=== PATIENT | male | born 2005 | race Caucasian/White ===

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

== ENCOUNTER → 2025-05-21 | Outpatient (CLI) | payer BC, SELFPAY ==
--- OUTSIDE RECORDS SUMMARY | 2025-05-21 20:47 | XMS RPT_ITS | CCD ---
Author Organization [facility] Inform ion Partnership [facility] Care Team Providers Care Conductor [employer] Name Role Phone MEKHI RODRIGUEZ Primary Care Mekhi Prather Attending Reynaldo Beyer Primary Care Unavailable PHYSICIAN, NOT RECORDED Primary Care Physician MEGHNA Albarado DO Attending Unavailable PHYSICIAN, NOT RECORDED Primary Care Unavaila ble Medications Current Medications Medication Drug Class(es) Dates Sig (Normalized) Sig (Original) famotidine 8 mg/ml oral suspension (2 sources) Histamine-2 Receptor Antagonist Start: 05-12-2025 take 1 dose by mouth twice daily famotidine 40 mg/5 mL oral suspension Dose : 40 mg = 5 mL, Oral, BID, # 300 mL, 0 Refill(s) Start Date: 05/12/25 Status: Ordered Medication Dispense Status: Completed Quantity: 300.0 Unit: mL Total Allowed Fills: 1 Fills Dispensed: 0 Start: 05-12-2025 Pepcid 20 mg o ral tablet Dose : 20 mg = 1 tab(s), Oral, BID, # 30 tab(s), 0 Refill(s) Start Date: 05/12/25 Status: Ordered Medication Dispense Status: Completed Quantity: 30.0 Unit: tab(s) Total Allowed Fills: 1 Fills Dispensed: 0 omeprazole 20 mg delayed release oral capsule (1 source) Proton Pump Inhibitor Start: 05-12-2025 omeprazole 20 mg oral delayed release capsule Dose : 20 mg = 1 cap(s), Oral, qDay, # 30 cap(s), 0 Refill(s) Start Date: 05/12/25 Status: Ordered Medication Dispense Status: Completed Quantity: 30.0 Unit: cap(s) Total Allowed Fills: 1 Fills Dispensed: 0 omeprazole 2 mg/mL oral suspension (1 source) Start: 05-12-2025 take 1 dose by mouth once daily omeprazole 2 mg/mL oral suspension Dose : 20 mg = 10 mL, Oral, qDay, # 200 mL, 0 Refill(s) Start Date: 05/12/25 Status: Ordered Medication Dispense Status: Completed Quantity: 200.0 Unit: mL Total Allowed Fills: 1 Fills Dispensed: 0 ondansetron 4 mg disintegrating oral tablet (1 source) Serotonin-3 Receptor Antagonist Start: 05-12-2025 End: 05-16-2025 ondansetron 4 mg oral tablet, disintegrating Dose : 4 mg = 1 tab(s), Oral, q6h, PRN Nausea/Vomiting, X 4 day(s), # 12 tab(s), 0 Refill(s), 05/16/25 11:45:00 PM EDT Start Date: 05/12/25 Stop Date: 05/16/25 Status: Ordered Medication Dispense Status: Completed Quantity: 12.0 Unit: tab(s) Total Allowed Fills: 1 Fills Dispensed: 0 Problems Problem Classification Problem Date Documented Da te Episodic/Chronic Abdominal pain (2 sources) Abdominal pain; Translations: [Unspecified abdominal pain] Onset: 05-12-2025 Episodic Acute and chronic tonsillitis (1 source) Chronic tonsillitis; Translations: [Chronic tonsillitis] Onset: 06-28-2023 Chronic Nausea and vomiting (2 sources) Nausea; Translations: [Nausea] Onset: 05-12-2025 Episodic Results Test Name Value Interpretation Reference Range Facility .Auto Diffon 05-12-2025 Basophil, Absolute 0.0 10 3/mcL Normal 0.0-0.3 [facility] Comment on above: Performed By: #### M DW, CBC, GFR, MG, LIP, ANEU, ADIFF, CMP #### [address] [place], [place] [address] Basophils/100 WBC (Bld) 0.4 % Normal 0.0-2.5 [facility] Comment on above: Performed By: #### M DW, CBC, GFR, MG, LIP, ANEU, ADIFF, CMP #### [address] [place], [place] [address] Eosinophil, Absolute 0.1 10 3/mcL Normal 0.0-0.7 [facility] Comment on above: Performed By: #### M DW, CBC, GFR, MG, LIP, ANEU, ADIFF, CMP #### [address] [address] Eosinophils/100 WBC (Bld) 1.1 % Normal 0.0-6.0 [facility] Comment on above: Performed By: #### M DW, CBC, GFR, MG, LIP, ANEU, ADIFF, CMP #### [address] [address] Lymphocyte, Absolute 2.6 10 3/mcL Normal 0.9-4.3 [facility] Comment on above: Performed By: #### M DW, CBC, GFR, MG, LIP, ANEU, ADIFF, CMP #### [address] [address] Lymphocytes/100 WBC (Bld) 21.7 % Normal 20.0-40.0 [facility] Comment on above: Performed By: #### M DW, CBC, GFR, MG, LIP, ANEU, ADIFF, CMP #### [address] [address] Monocyte, Absolute 0.9 10 3/mcL Normal 0.1-1.4 [facility] Comment on above: Performed By: #### M DW, CBC, GFR, MG, LIP, ANEU, ADIFF, CMP #### [address] [address] Monocytes/100 WBC (Bld) 7.7 % Normal 2.0-13.0 [facility] Comment on above: Performed By: #### M DW, CBC, GFR, MG, LIP, ANEU, ADIFF, CMP #### [address] [address] Neutrophils/100 WBC (Bld) 69.1 % Normal 50.0-75.0 [facility] Comment on above: Performed By: #### M DW, CBC, GFR, MG, LIP, ANEU, ADIFF, CMP #### [address] [address] .GFRon 2025 Estimated Glomerular Filtration Rate 95 ml/min/1.73sqm Normal [facility] Comment on above: Result Comment: Stages of Chronic Kidney Disease (CKD) Stage Description eGFR(ml/min/1.73 sq.m.) CKD 1 Normal kidney function or >=90 normal kindney function with possible kidney damage (ex. Proteinuria) CKD 2 Kidney damage with mild loss 60-89 of kidney function CKD 3a Mild to moderate loss of kidney 45-59 function CKD 3b Moderate to severe loss of 30-44 of kindey function CKD 4 Severe loss of kidney function 15-29 CKD 5 Kidney failure <15 Note: (go live 2024) the eGFR calculation was updated to the 2020 CKD-EPI creatinine equation without a race factor to calculate the eGFR results. Performed By: #### M DW, CBC, GFR, MG, LIP, ANEU, ADIFF, CMP #### [address] [address] .MDWon 05-12-2025 Monocyte Distribution Width 18.10 Normal 0.00-20.00 [facility] Comment on above: Result Comment: For ED adult patients suspected of sepsis, MDW<=20.0 does not rule out sepsis or risk of sepsis Performed By: #### M DW, CBC, GFR, MG, LIP, ANEU, ADIFF, CMP #### [address] [address] .NEUABSon 05-12-2025 Neutrophil, Absolute 8.4 10 3/mcL High 2.3-8.1 [facility] Comment on above: Performed By: #### M DW, CBC, GFR, MG, LIP, ANEU, ADIFF, CMP #### [address] [address] CBCon 05-12-2025 Erythrocyte distribution width (RBC) [Ratio] 13.1 % Normal 11.5-15.5 [facility] Comment on above: Performed By: #### M DW, CBC, GFR, MG, LIP, ANEU, ADIFF, CMP #### [address] [address] Hematocrit (Bld) [Volume fraction] 46.3 % Normal 40.0-52.0 [facility] Comment on above: Performed By: #### M DW, CBC, GFR, MG, LIP, ANEU, ADIFF, CMP #### [address] [address] Hgb 16.1 G/dL Normal 13.0-17.5 [facility] Comment on above: Performed By: #### M DW, CBC, GFR, MG, LIP, ANEU, ADIFF, CMP #### [address] [address] MCH (RBC) [Entitic mass] 30.1 pg Normal 27.0-33.0 [facility] Comment on above: Performed By: #### M DW, CBC, GFR, MG, LIP, ANEU, ADIFF, CMP #### [address] [address] MCHC 34.7 G/dL Normal 32.0-36.0 [facility] Comment on above: Performed By: #### M DW, CBC, GFR, MG, LIP, ANEU, ADIFF, CMP #### [address] [address] MCV (RBC) [Entitic vol] 86.9 fL Normal 81.0-100.0 [facility] Comment on above: Performed By: #### M DW, CBC, GFR, MG, LIP, ANEU, ADIFF, CMP #### [address] [address] Platelet 295 10 3/mcL Normal 150-450 [facility] Comment on above: Performed By: #### M DW, CBC, GFR, MG, LIP, ANEU, ADIFF, CMP #### [address] [address] Platelet mean volume (Bld) [Entitic vol] 8.8 fL Normal 6.4-10.5 [facility] Comment on above: Performed By: #### M DW, CBC, GFR, MG, LIP, ANEU, ADIFF, CMP #### [address] [address] RBC 5.33 10 6/mcL Normal 4.50-6.00 [facility] Comment on above: Performed By: #### M DW, CBC, GFR, MG, LIP, ANEU, ADIFF, CMP #### [address] [address] WBC 12.1 10 3/mcL High 4.5-10.8 [facility] Comment on above: Performed By: #### M DW, CBC, GFR, MG, LIP, ANEU, ADIFF, CMP #### [address] [address] CMPon 05-12-2025 ALT [Catalytic activity/Vol] 30 U/L Normal 16-63 [facility] Comment on above: Performed By: #### M DW, CBC, GFR, MG, LIP, ANEU, ADIFF, CMP #### [address] [address] Albumin Level 4.5 G/dL Normal 3.5-5.0 [facility] Comment on above: Performed By: #### M DW, CBC, GFR, MG, LIP, ANEU, ADIFF, CMP #### [address] [address] Albumin/Globulin [Mass ratio] 1.2 {ratio} Normal 1.1-2.5 [facility] Comment on above: Performed By: #### M DW, CBC, GFR, MG, LIP, ANEU, ADIFF, CMP #### [address] [address] ALP [Catalytic activity/Vol] 85 U/L Normal 40-135 [facility] Comment on above: Performed By: #### M DW, CBC, GFR, MG, LIP, ANEU, ADIFF, CMP #### [address] [address] AST [Catalytic activity/Vol] 41 U/L High 10-40 [facility] Comment on above: Performed By: #### M DW, CBC, GFR, MG, LIP, ANEU, ADIFF, CMP #### [address] [address] Bili Total 0.4 mg/dL Normal 0.2-1.0 [facility] Comment on above: Result Comment: Use of this assay is not recommended for patients undergoing treatment with eltrombopag due to the potential for falsely elevated results. Performed By: #### M DW, CBC, GFR, MG, LIP, ANEU, ADIFF, CMP #### [address] [address] BUN/Creatinine Ratio 12 ratio Normal 7-27 [facility] Comment on above: Performed By: #### M DW, CBC, GFR, MG, LIP, ANEU, ADIFF, CMP #### [address] [address] Calcium [Mass/Vol] 9.5 mg/dL Normal 8.4-10.2 [facility] Comment on above: Performed By: #### M DW, CBC, GFR, MG, LIP, ANEU, ADIFF, CMP #### [address] [address] Chloride [Moles/Vol] 102 mmol/L Normal 98-107 [facility] Comment on above: Performed By: #### M DW, CBC, GFR, MG, LIP, ANEU, ADIFF, CMP #### [address] [address] CO2 [Moles/Vol] 27 mmol/L Normal 22-29 [facility] Comment on above: Performed By: #### M DW, CBC, GFR, MG, LIP, ANEU, ADIFF, CMP #### [address] [address] Creatinine [Mass/Vol] 1.14 mg/dL Normal 0.67-1.17 [facility] Comment on above: Performed By: #### M DW, CBC, GFR, MG, LIP, ANEU, ADIFF, CMP #### [address] [address] Electrolyte Balance 8.0 mEq/L Normal 4.0-15.0 [facility] Comment on above: Performed By: #### M DW, CBC, GFR, MG, LIP, ANEU, ADIFF, CMP #### [address] [address] Globulin 3.7 G/dL Normal 2.7-4.4 [facility] Comment on above: Performed By: #### M DW, CBC, GFR, MG, LIP, ANEU, ADIFF, CMP #### [address] [address] Glucose [Mass/Vol] 96 mg/dL Normal 70-105 [facility] Comment on above: Performed By: #### M DW, CBC, GFR, MG, LIP, ANEU, ADIFF, CMP #### [address] [address] Potassium [Moles/Vol] 4.4 mmol/L Normal 3.5-5.1 [facility] Comment on above: Performed By: #### M DW, CBC, GFR, MG, LIP, ANEU, ADIFF, CMP #### [address] [address] Sodium [Moles/Vol] 137 mmol/L Normal 136-145 [facility] Comment on above: Performed By: #### M DW, CBC, GFR, MG, LIP, ANEU, ADIFF, CMP #### [address] [address] Total Protein 8.2 G/dL Normal 6.4-8.2 [facility] Comment on above: Performed By: #### M DW, CBC, GFR, MG, LIP, ANEU, ADIFF, CMP #### [address] [address] Urea nitrogen [Mass/Vol] 14 mg/dL Normal 7-18 [facility] Comment on above: Performed By: #### M DW, CBC, GFR, MG, LIP, ANEU, ADIFF, CMP #### [address] [address] [address] ABD/PELVIS W/ IV CONTRAST ONLYon 05-12-2025 CT ABD/PELVIS W/ IV CONTRAST ONLY ORIGINAL EXAMINATION: CT OF THE ABDOMEN AND PELVIS WITH CONTRAST 05/12/2025 11:07 pm TECHNIQUE: CT of the abdomen and pelvis was performed with the administration of intravenous contrast. Multiplanar reformatted images are provided for review. Automated exposure control, iterative reconstruction, and/or weight based adjustment of the mA/kV was utilized to reduce the radiation dose to as low as reasonably achievable. COMPARISON: None. HISTORY: ORDERING SYSTEM PROVIDED HISTORY: Reason for Exam: Abdominal pain, acute, nonlocalized FINDINGS: Lower Chest: Unremarkable Organs: Solid organs are unremarkable. Gallbladder is unremarkable. Bilateral kidneys show no hydronephrosis. GI/Bowel: No bowel obstruction. Noninflamed appendix. Subcentimeter mesenteric and right lower quadrant lymph nodes. Pelvis: Urinary bladder is unremarkable. Prostate is unremarkable. Peritoneum/Retroper itoneum: No acute aortic abnormality. No retroperitoneal lymphadenopathy. Bones/Soft Tissues: No acute osseous abnormality. IMPRESSION: No acute abdominopelvic abnormality. Normal appendix. I have personally reviewed the images of this examination and agree with the resident's findings and interpretation. Interpreted by: Karol Chakraborty Preliminary Report By: Mik Garza Electronically signed By Karol Chakraborty Dictated Date: 05/12/2025 11:26:48 PM Prelim Date: 05/12/2025 11:30:08 PM Sign Date: 05/12/2025 11:48:42 PM Ordering Provider: MEGHNA SANCHEZ RP Normal [facility] LABORATORYOrdered By: SYSTEM SYSTEM on 05-12-2025 Albumin BCP dye [Mass/Vol] 4.5 G/dL Normal 3.5 - 5.0 G/dL AO ADM SS Albumin/Globulin [Mass ratio] 1.2 {ratio} Normal 1.1 - 2.5 ratio AO ADM SS ALP [Catalytic activity/Vol] 85 U/L Normal 40 - 135 U/L AO ADM SS ALT With P-5'-P [Catalytic activity/Vol] 30 U/L Normal 16 - 63 U/L AO ADM SS AST With P-5'-P [Catalytic activity/Vol] 41 U/L High 10 - 40 U/L AO ADM SS Basophils (Bld) [#/Vol] 0.0 103/mcL Normal 0.0 - 0.3 10^3/mcL AO Workflow SS Basophils/100 WBC (Bld) 0.4 % Normal 0.0 - 2.5 % AO Workflow SS Bilirubin [Mass/Vol] 0.4 mg/dL Normal 0.2 - 1 .0 mg/dL AO ADM SS Comment on above: Interpretive Data: U se of this assay is not recommended for patients undergoing treatment with eltrombopag due to the potential for falsely elevated results. Calcium [Mass/Vol] 9.5 mg/dL Normal 8.4 - 10. 2 mg/dL AO ADM SS Chloride [Moles/Vol] 102 mmol/L Normal 98 - 10 7 mmol/L AO ADM SS CO2 [Moles/Vol] 27 mmol/L Normal 22 - 29 mmol/L AO ADM SS Creatinine [Mass/Vol] 1.14 mg/dL Normal 0.67 - 1.17 mg/dL AO ADM SS Electrolyte Balance 8.0 mEq/L Normal 4.0 - 15 .0 mEq/L AO ADM SS Eosinophil, Absolute 0.1 103/mcL Normal 0.0 - 0 .7 10^3/mcL AO Workflow SS Eosinophils/100 WBC (Bld) 1.1 % Normal 0.0 - 6.0 % AO Workflow SS Erythrocyte distribution width (RBC) [Ratio] 13.1 % Normal 11.5 - 15.5 % AO Workflow SS Globulin 3.7 G/dL Normal 2.7 - 4.4 G/dL AO ADM SS GLOMERULAR FILTRATION RATE/1.73 SQ M.PREDICTED:ARVRAT:PT: SER/PLAS/BLD:QN:CREATI NINE-BASED FORMULA (CKD-EPI 2020) 95 ml/min/1.73sqm Invalid Interpretation Code AO Chemistry S Comment on above: Interpretive Data: Stages of Chronic Kidney Disease (CKD) Stage Description eGFR(ml/min/1.73 sq.m.) CKD 1 Normal kidney function or >=90 normal kindney function with possible kidney damage (ex. Proteinuria) CKD 2 Kidney damage with mild loss 60-89 of kidney function CKD 3a Mild to moderate loss of kidney 45-59 function CKD 3b Moderate to severe loss of 30-44 of kindey function CKD 4 Severe loss of kidney function 15-29 CKD 5 Kidney failure <15 Note: (go live 2024) the eGFR calculation was updated to the 2020 CKD-EPI creatinine equation without a race factor to calculate the eGFR results. Glucose [Mass/Vol] 96 mg/dL Normal 70 - 105 mg/dL AO ADM SS Hematocrit (Bld) [Volume fraction] 46.3 % Normal 40.0 - 52.0 % AO Workflow SS Hemoglobin (Bld) [Mass/Vol] 16.1 G/dL Normal 13.0 - 17.5 G/dL AO Workflow SS Lipase [Catalytic activity/Vol] 35 U/L Normal 16 - 77 U/L AO ADM SS Lymphocytes (Bld) [#/Vol] 2.6 103/mcL Normal 0.9 - 4.3 10^3/mcL AO Workflow SS Lymphocytes/100 WBC (Bld) 21.7 % Normal 20.0 - 40.0 % AO Workflow SS Magnesium [Mass/Vol] 2.0 mg/dL Normal 1.8 - 2 .4 mg/dL AO ADM SS MCH (RBC) [Entitic mass] 30.1 pg Normal 27.0 - 33.0 pg AO Workflow SS MCHC 34.7 G/dL Normal 32.0 - 36.0 G/dL AO Workflow SS MCV (RBC) [Entitic vol] 86.9 fL Normal 81.0 - 100.0 fL AO Workflow SS Monocyte distribution width Auto (Bld) [Entitic vol] 18.10 1 Normal 0.00 - 20.00 AO Workflow SS Comment on above: Result Comment: For ED adult patients suspected of sepsis, MDW<=20.0 does not rule out sepsis or risk of sepsis Monocytes (Bld) [#/Vol] 0.9 103/mcL Normal 0.1 - 1.4 10^3/mcL AO Workflow SS Monocytes/100 WBC (Bld) 7.7 % Normal 2.0 - 13.0 % AO Workflow SS Neutrophils (Bld) [#/Vol] 8.4 103/mcL High 2.3 - 8.1 10^3/mcL AO Workflow SS Neutrophils/100 WBC (Bld) 69.1 % Normal 50.0 - 75.0 % AO Workflow SS Platelet mean volume (Bld) [Entitic vol] 8.8 fL Normal 6.4 - 10.5 fL AO Workflow SS Platelets (Bld) [#/Vol] 295 103/mcL Normal 150 - 450 10^3/mcL AO Workflow SS Potassium [Moles/Vol] 4.4 mmol/L Normal 3.5 - 5.1 mmol/L AO ADM SS Protein [Mass/Vol] 8.2 G/dL Normal 6.4 - 8.2 G/dL AO ADM SS RBC (Bld) [#/Vol] 5.33 106/mcL Normal 4.50 - 6.0 0 10^6/mcL AO Workflow SS Sodium [Moles/Vol] 137 mmol/L Normal 136 - 145 mmol/L AO ADM SS Urea nitrogen [Mass/Vol] 14 mg/dL Normal 7 - 18 mg/dL AO ADM SS Urea nitrogen/Creatinine [Mass ratio] 12 ratio Normal 7 - 27 ratio AO ADM SS WBC (Bld) [#/Vol] 12.1 103/mcL High 4.5 - 10.8 10^3/mcL AO Workflow SS LABORATORYOrdered By: Art Montanez on 05-12-2025 Color (U) Yellow (05/12/25 9:48 PM) Normal Yellow AO Auto Urine SS Glucose (U) [Mass/Vol] Negative Normal Negative AO Auto Urine SS Ketones Ql (U) Negative Normal Negative AO Auto Ur ine SS UA Appear Clear (05/12/25 9:48 PM) Normal Clear AO Auto Urine SS UA Bili Negative (05/12/25 9:48 PM) Normal Negative AO Auto Urine SS UA Blood Negative (05/12/25 9:48 PM) Normal Negative AO Auto Urine SS UA Leuk Est Negative (05/12/25 9:48 PM) Normal Negative AO Auto Urine SS UA Nitrite Negative (05/12/25 9:48 PM) Normal Negative AO Auto Urine SS UA pH 8.5 (05/12/25 9:48 PM) Normal 5.0 - 8.0 AO Auto Urine SS UA Protein Negative Normal Negative AO Auto Urine SS UA Spec Grav 1.015 (05/12/25 9:48 PM) Normal 1.015-1.025 AO Auto Urine SS UA Specimen Type Clean Catch (05/12/25 9:48 PM) Normal AO Auto Urine SS UA Urobilinogen 0.2 E.U./dL Normal 0.2-1.0 AO Auto Urine SS LIPon 05-12-2025 Lipase Level 35 U/L Normal 16-77 [facility] Comment on above: Performed By: #### M DW, CBC, GFR, MG, LIP, ANEU, ADIFF, CMP #### [address] [address] MGon 05-12-2025 Magnesium [Mass/Vol] 2.0 mg/dL Normal 1.8-2.4 [facility] Comment on above: Performed By: #### M DW, CBC, GFR, MG, LIP, ANEU, ADIFF, CMP #### [address] [address] UAon 05-12-2025 Color (U) Yellow Normal Yellow [facility] Comment on above: Performed By: #### U A #### [address] [address] Glucose (U) [Mass/Vol] Negative Normal Negative [facility] Comment on above: Performed By: #### U A #### [address] [address] Ketones Ql (U) Negative Normal Negative [facility] Comment on above: Performed By: #### U A #### [address] [place] [address] UA Appear Clear Normal Clear [facility] Comment on above: Performed By: #### U A #### [address] [address] UA Blood Negative Normal Negative [facility] Comment on above: Performed By: #### U A #### [address] [address] UA Leuk Est Negative Normal Negative [facility] Comment on above: Performed By: #### U A #### [address] [place] [address] UA Nitrite Negative Normal Negative [facility] Comment on above: Performed By: #### U A #### [address] [address] UA pH 8.5 Normal 5.0 - 8.0 [facility] Comment on above: Performed By: #### U A #### [address] [place] [address] UA Protein Negative Normal Negative [facility] Comment on above: Performed By: #### U A #### [address] [place], [place] [address] UA Spec Grav 1.015 Normal 1.015-1.025 [facility] Comment on above: Performed By: #### U A #### [address] [place], [place] [address] UA Specimen Type Clean Catch Normal [facility] Comment on above: Performed By: #### U A #### [address] [place], [place] [address] UA Urobilinogen 0.2 E.U./dL Normal 0.2-1.0 [facility] Comment on above: Performed By: #### U A #### [address] [address] Urobilinogen (U) [Mass/Vol] Negative Normal Negative [facility] Comment on above: Performed By: #### U A #### [address] [address] Surgery Specimen Level IIIon 06-21-2023 Surgery Specimen Level III Patient Age/Sex Location Account Attending Physician PAUL BANGURA 17/M [facility] [id number] Becky Lewis Specimen: [id number] Received: 06/24/23 Status: LUIS Lee Num: [id number] Spec Type: TONSILS Subm Dr: Dr. Mekhi Dawson MD HEADER OPERATION: Tonsillectomy PRE-OP DIAGNOSIS: Chronic tonsillitis TISSUE SUBMITTED: Tonsils, right tonsil marked with pin MICROSCOPIC DIAGNOSIS Right tonsil, tonsillectomy: Benign lymphoid follicular hyperplasia, consistent with chronic tonsillitis. Left tonsil, tonsillectomy: Benign lymphoid follicular hyperplasia, consistent with chronic tonsillitis. AM:momo 06/27/2023 MICROSCOPIC DESCRIPTION Slides are reviewed. GROSS DESCRIPTION Received is one container labeled with the patient's name and designated tonsils - pin on right are two tonsils that in aggregate weigh 18 gm. The right tonsil has a pin on it and measures 3.5 x 2.5 x 2.0 cm. The left tonsil measures 3.4 x 2.5 x 2.2 cm. Both tonsils are similar in appearance. The external surfaces are pink-slade, smooth, glistening and somewhat lobulated. Focally they are hemorrhagic, granular and bear cautery artifact. Serial cross sections through the tonsils reveal normal tonsillar architecture. Sections are submitted in two cassettes as follows: 1 - right tonsil, 2 - left tonsil. / AM:momo 06/24/2023 TC:5 [facility]: [id number] x2 Patient Age/Sex Location Account Attending Physician [facility] B[facility] 17[id number] Becky Lewis Signed (signatur e on file) Dr. Austyn Verma DO 06/27/23 1302 Normal [facility] Comment on above: Performed By: #### P SUIII #### [facility] [address] [place], [address] Vivian 09-24-2022 CNOV Office Visit ([facility]) ---- PAUL BANGURA ([id number]) 5 M Date Time Provider Department 09/24/22 7:45 PM [facility] During your visit today, we recorded the following information about you: Temperature Pulse Respiration Blood pressure 98.9 degrees 90/minute 18/minute 126/78 Weight 93.9 kg LEONEL Rhodes 09/24/2022 8:05 PM Signed This note was created using NoteWriter. Subjective Paul Bangura is a 16 year old male. HPI 16-year-old male presents for sore throat and tonsillar swelling. Patient states this morning he got a sore throat. His tonsils are swollen. He has had a mild runny nose. No cough. No fevers. No vomiting. Still able to eat and drink. Handling secretions. No past medical history on file. No past surgical history on file. ALLERGIES Patient has no known allergies. MEDICATIONS No prescriptions on file. No family history on file. Review of Systems Constitutional: Negative for chills and fever. HENT: Positive for sore throat. Negative for congestion. Respiratory: Negative for cough and shortness of breath. Gastrointestinal: Negative for diarrhea and vomiting. Objective There were no vitals taken for this visit. Physical Exam Vitals and nursing note reviewed. Constitutional: General: He is not in acute distress. Appearance: Normal appearance. He is not toxic-appearing. HENT: Right Ear: Tympanic membrane and ear canal normal. Left Ear: Tympanic membrane and ear canal normal. Nose: Nose normal. Mouth/Throat: Mouth: Mucous membranes are moist. Pharynx: Uvula midline. Posterior oropharyngeal erythema present. No pharyngeal swelling or oropharyngeal exudate. Tonsils: No tonsillar exudate. 2+ on the right. 2+ on the left. Eyes: Conjunctiva/sclera: Conjunctivae normal. Cardiovascular: Rate and Rhythm: Normal rate and regular rhythm. Pulmonary: Effort: Pulmonary effort is normal. Breath sounds: Normal breath sounds. Skin: General: Skin is warm and dry. Neurological: Mental Status: He is alert. Assessment and Plan ASSESSMENT/PLAN: 1. Sore throat - ICD9: 462, ICD10: J02.9 - suspect viral - Alere Strep Test negative, no culture pending - Discussed supportive care treatment with fluids, rest and analgesia. - STREP A MOLECULAR (POC) Diagnosis and treatment plan were discussed and questions were answered to the patient's satisfaction. Pt acknowledged understanding of concepts and follow up plan. Specific signs and symptoms that would indicate the need for higher level of care were discussed in detail warranting prompt ER evaluation. LEONEL Rhodes PA 09/24/2022 8:01 PM Signed PHARYNGITIS PATIENT INSTRUCTIONS DESCRIPTION: Inflammation and infection of the pharynx that can be caused by a variety of germs. SIGNS AND SYMPTOMS: -Sore throat. -Swallowing difficulty. -Tickle or lump in the throat. -Fever. -Swollen glands in the neck (sometimes). -Throat may be red or covered with a grayish membrane (sometimes). -Generalized aching. CAUSES: Infection from bacteria, viruses or fungi. PREVENTIVE MEASURES: -Avoid close contact with anyone with a sore throat. -Keep immunizations, including diphtheria, up to date. TREATMENT: -Laboratory throat culture and blood count may be done to determine type of infection. -Home care is usually sufficient. -Use gargles to relieve throat pain. Prepare double strength tea, hot or cold, or a salt-water solution (1 teaspoon salt in 8 oz. warm water). Use to gargle as often as you wish. -Use a cool-mist ultrasonic humidifier to increase air moisture. This will relieve the dry, tight feeling in the throat. Clean humidifier daily. -If the glands are large and tender, apply moist, warm soaks at least 4 times a day for 30 to 60 minutes. The compresses will be more effective if they are kept warm. Be careful not to burn the skin. -Replace your toothbrush. It may be harboring germs. -Until infection is gone, don't share washcloths; or food. MEDICATIONS: -For minor discomfort you may use non-prescription drugs such as acetaminophen. Don't give aspirin to a child for any viral illness. -Non-prescription throat lozenges may help ease discomfort. -Antibiotics or antifungal agents to fight bacterial or fungal infections. Be sure to finish entire course of prescribed antibiotics to avoid complications. ACTIVITY: Limited activity is necessary until symptoms disappear. DIET: Extra fluids are necessary. Drink at least 8 glasses of fluid daily, more for high fevers. If swallowing solid food is painful, try a liquid or soft diet for a few days. NOTIFY OFFICE: -The following occur during treatment: Breathing or swallowing difficulty. Fever; severe headache. Thick mucus drainage from the nose. Productive cough that is discolored. Skin rash. Dark urine (more content not included)... Normal [facility] Vital Signs Date Time Vital Sign Value Performing Clinician Gregorio mueller 05-13-2025 00:12-0400 Diastolic Blood Pressure Non-Invasive 54 mm[Hg] MEGHNA SANCHEZ [employer] [facility] 05-13-2025 00:12-0400 Heart rate 78 /min [facility] [employer] [facility] 05-13-2025 00:12-0400 Reason For Taking VItal Signs [facility] [employer] [facility] 05-13-2025 00:12-0400 Respiratory rate 16 /min MEGHNA FROMMELT DO [facility] 05-13-2025 00:12-0400 Systolic Blood Pressure Non-Invasive 129 mm[Hg] MEGHNA FROMMELT DO [facility] 05-12-2025 23:02-0400 Diastolic Blood Pressure Non-Invasive 61 mm[Hg] MEGHNA FROMMELT DO [facility] 05-12-2025 23:02-0400 Heart rate 77 /min MEGHNA MIRANDAMELT DO [facility] 05-12-2025 23:02-0400 Reason For Taking VItal Signs MEGHNA FROMMELT DO [facility] 05-12-2025 23:02-0400 Respiratory rate 16 /min MEGHNA FROMMELT DO [facility] 05-12-2025 23:02-0400 Systolic Blood Pressure Non-Invasive 131 mm[Hg] MEGHNA MIRANDAMELT DO [facility] 05-12-2025 21:41-0400 Body temperature 97.52 [degF] MEGHNA MIRANDAMELT DO [facility] 05-12-2025 21:41-0400 Body weight 108.3 kg MEGHNA FROMMELT DO [facility] 05-12-2025 21:41-0400 Diastolic Blood Pressure Non-Invasive 81 mm[Hg] MEGHNA MIRANDAMELT DO [facility] 05-12-2025 21:41-0400 Heart rate 83 /min MEGHNA FROMMELT DO [facility] 05-12-2025 21:41-0400 Respiratory rate 16 /min MEGHNA MIRANDAMELT DO [facility] 05-12-2025 21:41-0400 Systolic Blood Pressure Non-Invasive 151 mm[Hg] MEGHNA SANCHEZ DO [facility] Encounters Encounter Date Encounter Type Care Provider Facility Start: 05-12-2025 End: 05-13-2025 Emergency department patient visit MEGHNA SANCHEZ DO [facility] Start: 06-22-2023 End: [facility] Start: 09-24-2022 End: 09-24-2022 ambulatory [facility] Facility:[facility] Procedures Date Procedure Procedure Detail Performing Clinician Tonsillar structure (palatine) (body structure) MEGHNA SANCHEZ DO Payers Date Payer Category Payer Private Health Insurance [id number] 2023 Self-pay 2023 Unknown [id number] 2009 Unknown [id number] 2005 Unknown [id number] Unknown [id number] Social History Date Type Detail Facility Tobacco Nicotine Use: Va ping Product in Last 90 Days. Type: Electronic Cigarettes (Vaping). [facility] Tobacco smoking status [facility] Sex Assigned At Male [facility] Start: 05-12-2025 Sex Male (finding) [facility] Start: 05-12-2025 Not applicable (qualifier value) [facility] Functional Status Date Assessment Result Facility 05-13-2025 Functional Status Standard Safet y ID band on, Call device within reach, Bed in low position, Wheels locked, Bedside Cart Locked, Safety level maintained [facility] 05-12-2025 [facility] 05-12-[address] [facility] 05-12-2025 [facility] Mental Status Date Assessment Result Facility 05-13-2025 Mental Status Oriented x 4 [facility] 05-12-2025 Mental Status [facility] Hospital Discharge instructions 05-13-2025 Note Date & Type Note Facility 05-13-2025 Hospital Discharg e instructions Patient Education 05/12/2025 23:45:20 Gastritis or Ulcer (No Antibiotic Treatment) Gastritis or Ulcer, No Antibiotic Treatment Gastritis is irritation and inflammation of the stomach lining. This means the lining is red and swollen. It can cause shallow sores in the stomach lining called erosions. An ulcer is a deeper open sore in the lining of the stomach. It may also occur in the first part of the small intestine (duodenum). The causes and symptoms of gastritis and ulcers are very similar. Causes and risk factors for both problems can include: Long-term use of nonsteroidal anti-inflammatory drugs (NSAIDs), such as aspirin and ibuprofen H. pylori bacteria infection Tobacco use Alcohol use Certain other conditions such as immune disorders, certain medicines (high-dose iron supplements) and street drugs (such as cocaine) Symptoms for both problems can include: Dull or burning pain in the upper part of the belly Loss of appetite Heartburn or upset stomach Frequent burping Bloated feeling Nausea with or without vomiting You likely had an evaluation to help find the exact cause and extent of your problem. This may have included a health history, exam, and certain tests. Results showed that your problem is not due to H. pylori infection. For this reason, you don't need antibiotics as part of your treatment. Whether your problem is gastritis or an ulcer, you will still need to take other medicines, however. You will also need to follow instructions to help reduce stomach irritation so your stomach can heal. Home care Take any medicines you re prescribed exactly as directed. Common medicines used to treat gastritis include: oAntacids. These help neutralize the normal acids in your stomach. oProton pump inhibitors. These block your stomach from making any acid. oH2 blockers. These reduce the amount of acid your stomach makes. oBismuth subsalicylate. This helps protect the lining of your stomach from acid. Don't take any NSAIDs during your treatment. If you take NSAID to help treat other health problems, tell your healthcare provider. He or she may need to adjust your medicine plan or change the dosage. Don t use tobacco. Also don t drink alcohol. These products can increase the amount of acid your stomach makes. This can delay healing. It can also worsen symptoms. Follow-up care Follow up with your healthcare provider, or as advised. In some cases, more testing may be needed. When to seek medical advice Call your healthcare provider right away if any of these occur: Fever of 100.4 F (38 C) or higher, or as directed by your healthcare provider Stomach pain that worsens or moves to the lower right part of belly Extreme fatigue Weakness or dizziness Continued weight loss Frequent vomiting, blood in your vomit, or coffee ground-like substance in your vomit Black, tarry, or bloody stools Call 911 Call 911 if any of these occur: Chest pain appears or worsens, or spreads to the back, neck, shoulder, or arm Unusually fast heart rate Trouble breathing or swallowing Confusion Extreme drowsiness or trouble waking up Fainting Large amounts of blood present in vomit or stool 8477-5355 [employer]. [address] [place] [address]. All rights reserved. This information is not intended as a substitute for professional medical care. Always follow your healthcare professional's instructions. 05/12/2025 23:45:11 Abdominal Pain, Unknown Cause, (Male) Unknown Causes of Abdominal Pain (Male) Based on your visit today, the exact cause of your abdominal pain is not clear. Your exam and tests don't suggest a dangerous cause at this time. However, the signs of a serious problem may take more time to appear. Although your evaluation was reassuring today, sometimes early in the course of many conditions, exam and lab tests can appear normal. Therefore, it is important for you to watch for any new symptoms or worsening of your condition. It may not be obvious what caused your symptoms. Pay attention to things that do seem to make your symptoms worse or better and discuss this with your doctor when you follow up. The evaluation of abdominal pain in the emergency department may only require an exam by the doctor or it may include blood, urine or imaging studies, depending on many factors. Sometimes exams and tests can identify a cause but in many cases, a clear cause is not found. Further testing at follow up visits may help to suggest a clear diagnosis. Home care Rest as much as you can until your next exam. Try to avoid any medicines (unless otherwise directed by your doctor), foods, activities, or other factors that may have contributed to your symptoms. Try to eat foods that you know that you have tolerated well in the past. Certain diets may be recommended for some conditions that cause abdominal pain. However, since the cause of your symptoms may not be clear, discuss your diet more with your healthcare provider or specialist for further recommendations. If you have diarrhea, it may help to avoid dairy (lactose) for the time being. A low fat, low fiber diet can also help. Eating several small meals per day as opposed to 2 or 3 larger meals may help. Avoid dehydration. Make sure to drink plenty of water. Other options include broth, soup, gelatin, sports drinks, or other clear liquids. Watch closely for anything that may make your symptoms worse or better. Pay close attention to symptoms below that may mean your condition is getting worse. Follow-up care Follow up with your healthcare provider if your symptoms are not improving, or as advised. In some cases, you may need more testing. When to seek medical advice Call your healthcare provider right away if any of these occur: Pain is becoming worse You are unable to take your medicines or can't keep water down due to excessive vomiting Swelling of the abdomen Fever of 100.4 F (38 C) or higher, or as directed by your healthcare provider Blood in vomit or bowel movements (dark red or black color) Jaundice (yellow color of eyes and skin) New onset of weakness, dizziness or fainting New onset of chest, arm, back, neck or jaw pain 9772-1219 [employer]. [address] [place] [address], [place] [address]. All rights reserved. This information is not intended as a substitute for professional medical care. Always follow your healthcare professional's instructions. Follow Up Care 05/12/2025 21:40:12 With:SAL HERNANDEZ MD Address: [address] [address] [phone] When:2-4 days [facility] Discharge summary 05-13-2025 Note Date & Type Note Facility 05-13-2025 Emergency department Discharge summary Discharge Instructions Thank you for allowing [facility] to assist you with your healthcare needs. The following is important discharge information regarding your hospital visit. Diagnosis from Today's Visit Abdominal pain Nausea What to Do Next Instructions from Your Care Team No qualifying data available. Post Acute Orders No qualifying data available. You Need to Schedule the Following Appointments Follow Up with SAL HERNANDEZ MD When:Within 2-4 days Where:[address] [place] [address] [phone] Allergies NKA Medications Please ask your primary doctor or pharmacist before taking any other medication not listed, including over the counter drugs, herbal medications, vitamins and or supplements as they may interact with your home medications. What How Much When Instructions Last Dose New famotidine (famotidine 40 mg/ 5 mL oral suspension) 5 Milliliter by mouth Two (2) times a day Printed Prescription New famotidine (Pepcid 20 mg oral tablet) 1 tab(s) by mouth Two (2) times a day Printed Prescription New omeprazole (omeprazole 2 mg/ mL oral suspension) 10 Milliliter by mouth Once a day Printed Prescription New omeprazole (omeprazole 20 mg oral delayed release capsule) 1 cap by mouth Once a day Printed Prescription New ondansetron (ondansetron 4 mg oral tablet, disintegrating) 1 tab(s) by mouth Every 6 hours as needed for Nausea/Vomiting Duration: 4 Days Printed Prescription Please take this list to your next doctor s visit. Bring all medications you take, including over the counter medications, herbals and other supplements with you to your doctor s visit. Patients and families are reminded to discard old lists and to update any records with all medication providers or retail pharmacies. Education Materials Gastritis or Ulcer, No Antibiotic Treatment Gastritis is irritation and inflammation of the stomach lining. This means the lining is red and swollen. It can cause shallow sores in the stomach lining called erosions. An ulcer is a deeper open sore in the lining of the stomach. It may also occur in the first part of the small intestine (duodenum). The causes and symptoms of gastritis and ulcers are very similar. Causes and risk factors for both problems can include: Long-term use of nonsteroidal anti-inflammatory drugs (NSAIDs), such as aspirin and ibuprofen H. pylori bacteria infection Tobacco use Alcohol use Certain other conditions such as immune disorders, certain medicines (high-dose iron supplements) and street drugs (such as cocaine) Symptoms for both problems can include: Dull or burning pain in the upper part of the belly Loss of appetite Heartburn or upset stomach Frequent burping Bloated feeling Nausea with or without vomiting You likely had an evaluation to help find the exact cause and extent of your problem. This may have included a health history, exam, and certain tests. Results showed that your problem is not due to H. pylori infection. For this reason, you don't need antibiotics as part of your treatment. Whether your problem is gastritis or an ulcer, you will still need to take other medicines, however. You will also need to follow instructions to help reduce stomach irritation so your stomach can heal. Home care Take any medicines you re prescribed exactly as directed. Common medicines used to treat gastritis include: oAntacids. These help neutralize the normal acids in your stomach. oProton pump inhibitors. These block your stomach from making any acid. oH2 blockers. These reduce the amount of acid your stomach makes. oBismuth subsalicylate. This helps protect the lining of your stomach from acid. Don't take any NSAIDs during your treatment. If you take NSAID to help treat other health problems, tell your healthcare provider. He or she may need to adjust your medicine plan or change the dosage. Don t use tobacco. Also don t drink alcohol. These products can increase the amount of acid your stomach makes. This can delay healing. It can also worsen symptoms. Follow-up care Follow up with your healthcare provider, or as advised. In some cases, more testing may be needed. When to seek medical advice Call your healthcare provider right away if any of these occur: Fever of 100.4 F (38 C) or higher, or as directed by your healthcare provider Stomach pain that worsens or moves to the lower right part of belly Extreme fatigue Weakness or dizziness Continued weight loss Frequent vomiting, blood in your vomit, or coffee ground-like substance in your vomit Black, tarry, or bloody stools Call 911 Call 911 if any of these occur: Chest pain appears or worsens, or spreads to the back, neck, shoulder, or arm Unusually fast heart rate Trouble breathing or swallowing Confusion Extreme drowsiness or trouble waking up Fainting Large amounts of blood present in vomit or stool [id number] [employer]. [address] [place] [address], [place] [address]. All rights reserved. This information is not intended as a substitute for professional medical care. Always follow your healthcare professional's instructions. Unknown Causes of Abdominal Pain (Male) Based on your visit today, the exact cause of your abdominal pain is not clear. Your exam and tests don't suggest a dangerous cause at this time. However, the signs of a serious problem may take more time to appear. Although your evaluation was reassuring today, sometimes early in the course of many conditions, exam and lab tests can appear normal. Therefore, it is important for you to watch for any new symptoms or worsening of your condition. It may not be obvious what caused your symptoms. Pay attention to things that do seem to make your symptoms worse or better and discuss this with your doctor when you follow up. The evaluation of abdominal pain in the emergency department may only require an exam by the doctor or it may include blood, urine or imaging studies, depending on many factors. Sometimes exams and tests can identify a cause but in many cases, a clear cause is not found. Further testing at follow up visits may help to suggest a clear diagnosis. Home care Rest as much as you can until your next exam. Try to avoid any medicines (unless otherwise directed by your doctor), foods, activities, or other factors that may have contributed to your symptoms. Try to eat foods that you know that you have tolerated well in the past. Certain diets may be recommended for some conditions that cause abdominal pain. However, since the cause of your symptoms may not be clear, discuss your diet more with your healthcare provider or specialist for further recommendations. If you have diarrhea, it may help to avoid dairy (lactose) for the time being. A low fat, low fiber diet can also help. Eating several small meals per day as opposed to 2 or 3 larger meals may help. Avoid dehydration. Make sure to drink plenty of water. Other options include broth, soup, gelatin, sports drinks, or other clear liquids. Watch closely for anything that may make your symptoms worse or better. Pay close attention to symptoms below that may mean your condition is getting worse. Follow-up care Follow up with your healthcare provider if your symptoms are not improving, or as advised. In some cases, you may need more testing. When to seek medical advice Call your healthcare provider right away if any of these occur: Pain is becoming worse You are unable to take your medicines or can't keep water down due to excessive vomiting Swelling of the abdomen Fever of 100.4 F (38 C) or higher, or as directed by your healthcare provider Blood in vomit or bowel movements (dark red or black color) Jaundice (yellow color of eyes and skin) New onset of weakness, dizziness or fainting New onset of chest, arm, back, neck or jaw pain 1792-4692 [employer]. [address] [place] [address]. All rights reserved. This information is not intended as a substitute for professional medical care. Always follow your healthcare professional's instructions. Additional Information VACCINATE! IT SAVES LIVES! Members of the community who have not yet received the COVID-19 vaccine and would like to receive it can visit one of [facility] vaccine clinics. There are many vaccine clinic locations within the [facility]. For locations and available times, please visit [email or web address].[place].g [email or web address] It is important to note that some COVID mobile vaccine clinics are held outdoors and may be canceled in rainy or stormy conditions. To learn more about pediatric vaccinations (ages 5-11), we invite you to visit the [facility] webpage. https://www.[email or web address].org/pa [email or web address]-Lglbm-Badyplgmove-Freque elhp-Bltnw-Efgnwkmjl.html To learn more about the COVID-19 vaccine, we invite you to visit the CDC website for a list of frequently asked questions. https://www.cdc.gov/coronavirus/2 019-ncov/vaccines/faq.html [facility] Patient Portal Access Instructions: Stay connected with your healthcare team and access your personal medical information anytime with the [facility] Patient Portal. If you would like a full copy of your medical records please contact the [facility] Medical Records Department Tuesday through Tuesday between 8a.m. and 4:30p.m. Please follow the directions below to access the portal: 1.Access the email account you provided upon registration to the [facility].2.Look for an invitation email from [facility].3.Open the email and access the invitation link: Accept Invitation to [employer]4.Fill in the required vicente to create your account. To access your account, visit [employer] or scan the [employer] code above. Click the blue button labeled Access Patient Portal and then log in with the username and password that you created in the steps above. You can then view a summary of results, a summary of your visits, and the ability to download your summaries to your computer or send the information securely to a physician. Remember that your healthcare information is confidential, so carefully consider who you will allow to register on the [employer] Patient Portal for access to your information. You can also access the [employer] [facility] Patient Portal on the [employer]. Simply click on Health Records under Health Data and then click on the [employer] logo. HOW TO SAFELY DISPOSE OF PRESCRIPTION MEDICATIONS Please use one of the following methods to safely dispose of your unused medications. 1.Use a drug disposal kit: the drug disposal pouch allows you to safely discard your old and unused drugs. Ask your nurse to give you one when you are discharged.2.Visit a local take-back location: Many local pharmacies and police departments have programs that collect old and unwanted prescription drugs. Call your local pharmacy or go to http://Expreem.Shoot Extreme/6U1Ly5h to find one close to you.3.Make use of household items: Use cat litter or old coffee grounds to dispose medications if other options are not available. Mix your drugs with these household products, seal them in an airtight container and throw it into the garbage. Call [facility]: [phone] to be sure your drugs can be disposed of in this way. Some medicines may require a different approach.4.Never flush your medications down the toilet. IF YOU HAVE BEEN PRESCRIBED AN OPIOIDS FOR PAIN If you have been prescribed an opioid (such as hydrocodone, oxycodone or morphine), it is critical to understand the possible side effects and risks of opioid pain medications. Even when taken as directed, opioids can have several side effects including: Tolerance, meaning you might need to take more of a medication for the same pain relief. Nausea, vomiting and/or constipation. Sleepiness, dizziness, dry mouth, confusion, depression or itching. Physical dependence, meaning you have withdrawal symptoms when a medication is stopped ? this can develop within a few days. KNOW YOUR RESPONSIBILITIES It is important to know exactly how much and how often to take the opioid pain medications you are prescribed. Never take opioids in higher amounts or more often than prescribed. Do not combine opioids with alcohol or other drugs that cause drowsiness, such as benzodiazepines, also known as benzos, including diazepam and alprazolam, muscle relaxants or sleep aids. Never sell or share prescription opioids. This is illegal. Store opioids in a secure place and out of reach of others (including children, family, friends and visitors). The last page(s) of this document has been signed and retained as a CHART COPY Signatures Patient Education Materials Gastritis or Ulcer (No Antibiotic Treatment) Abdominal Pain, Unknown Cause, (Male) Medication Leaflets My discharge plan and instructions have been reviewed and explained to me and I,PAUL BANGURA understand my current condition and have read and understand these discharge instructions. I have received a written copy of the plan/instructions. If I have questions, I am aware that I should contact my doctor. Patient/Carpet Layer Signature: Date/Time: Relationship to Patient: ____ Witness Name/Signature: Date/Time: [facility] Clinical Note 05-12-2025 Note Date & Type Note Facility 05-12-2025 Note Exam Date Time Procedure Performing Provider Status 05/12/25 11:[address] Abd/Pelvis w/ IV Contrast Only KAROL CHAKRABORTY DO; Auth (Verified) [id number] ORIGINAL EXAMINATION: CT OF THE ABDOMEN AND PELVIS WITH CONTRAST 05/12/2025 11:07 pm TECHNIQUE: CT of the abdomen and pelvis was performed with the administration of intravenous contrast. Multiplanar reformatted images are provided for review. Automated exposure control, iterative reconstruction, and/or weight based adjustment of the mA/kV was utilized to reduce the radiation dose to as low as reasonably achievable. COMPARISON: None. HISTORY: ORDERING SYSTEM PROVIDED HISTORY: Reason for Exam: Abdominal pain, acute, nonlocalized FINDINGS: Lower Chest: Unremarkable Organs: Solid organs are unremarkable. Gallbladder is unremarkable. Bilateral kidneys show no hydronephrosis. GI/Bowel: No bowel obstruction. Noninflamed appendix. Subcentimeter mesenteric and right lower quadrant lymph nodes. Pelvis: Urinary bladder is unremarkable. Prostate is unremarkable. Peritoneum/Retroperitoneum: No acute aortic abnormality. No retroperitoneal lymphadenopathy. Bones/Soft Tissues: No acute osseous abnormality. IMPRESSION: No acute abdominopelvic abnormality. Normal appendix. I have personally reviewed the images of this examination and agree with the resident's findings and interpretation. Interpreted by: Karol Chakraborty Preliminary Report By: Mik Garza Electronically signed By Karol Chakraborty Dictated Date: 05/12/2025 11:26:48 PM Prelim Date: 05/12/2025 11:30:08 PM Sign Date: 05/12/2025 11:48:42 PM Ordering Provider: MEGHNA SANCHEZ RP [facility] Progress note 09-24-2022 Note Date & Type Note Facility 09-24-2022 Note HNO ID: [id number] Author: LEONEL Rhodes Service: ? Author Type: Physician Picture Enlarger Type: Progress Notes Filed: 09/24/2022 8:05 PM Note Text: This note was created using NoteWriter. Subjective Paul Bangura is a 16 year old male. HPI 16-year-old male presents for sore throat and tonsillar swelling. Patient states this morning he got a sore throat. His tonsils are swollen. He has had a mild runny nose. No cough. No fevers. No vomiting. Still able to eat and drink. Handling secretions. No past medical history on file. No past surgical history on file. ALLERGIES Patient has no known allergies. MEDICATIONS No prescriptions on file. No family history on file. Review of Systems Constitutional: Negative for chills and fever. HENT: Positive for sore throat. Negative for congestion. Respiratory: Negative for cough and shortness of breath. Gastrointestinal: Negative for diarrhea and vomiting. Objective There were no vitals taken for this visit. Physical Exam Vitals and nursing note reviewed. Constitutional: General: He is not in acute distress. Appearance: Normal appearance. He is not toxic-appearing. HENT: Right Ear: Tympanic membrane and ear canal normal. Left Ear: Tympanic membrane and ear canal normal. Nose: Nose normal. Mouth/Throat: Mouth: Mucous membranes are moist. Pharynx: Uvula midline. Posterior oropharyngeal erythema present. No pharyngeal swelling or oropharyngeal exudate. Tonsils: No tonsillar exudate. 2+ on the right. 2+ on the left. Eyes: Conjunctiva/sclera: Conjunctivae normal. Cardiovascular: Rate and Rhythm: Normal rate and regular rhythm. Pulmonary: Effort: Pulmonary effort is normal. Breath sounds: Normal breath sounds. Skin: General: Skin is warm and dry. Neurological: Mental Status: He is alert. Assessment and Plan ASSESSMENT/PLAN: 1. Sore throat - ICD9: 462, ICD10: J02.9 - suspect viral - Alere Strep Test negative, no culture pending - Discussed supportive care treatment with fluids, rest and analgesia. - STREP A MOLECULAR (POC) Diagnosis and treatment plan were discussed and questions were answered to the patient's satisfaction. Pt acknowledged understanding of concepts and follow up plan. Specific signs and symptoms that would indicate the need for higher level of care were discussed in detail warranting prompt ER evaluation. LEONEL Rhodes [facility] Evaluation + Plan note Note Date & Type Note Facility Evaluation + Plan note No data available for this section [facility] Summary note Note Date & Type Note Facility Summary note [facility]: PERFORM Event Display: Patient Summary Documents Authored Date: [id number] [facility] Summary Purpose Family History No Family History Records FoundNo Family History Records Found No data available for this section No Family History Records Found Advance Directives No Advanced Directives Records FoundNo Advanced Directives Records FoundNo Advanced Directives Records Found Additional Source Comments (unrecognized sect ion and content) No Status Records FoundNo Status Records FoundNo Status Records Found INFORMATION SOURCE (unrecogn ized section and content) DATE CREATED AUTHOR 09/25/2022 [facility] DATE CREATED AUTHOR AUTHOR'S ORGANIZ ATION 06/29/2023 [facility] DATE CREATED AUTHOR AUTHOR'S ORGANIZ ATION 05/18/2025 [facility] Patient Care team informatio n (unrecognized section and content) Care Team Personnel Name: PHYSICIAN, NOT RECORDED Member Role: Primary Care Physician Care Team Related Persons Name: JADYN BANGURA Name: JADYN BANGURA FOR RECORDS PERTAINING TO PATIENTS WHO ARE OR HAVE BEEN ENROLLED IN A CHEMICAL DEPENDENCY/SUBSTANCEABUSE PROGRAM, SOME INFORMATION MAY BE OMITTED. This clinical summary was aggregated from multiple sources. Caution should be exercised in using it in the provision of clinical care. This summary normalizes information from multiple sources, and as a consequence, information in this document may materially change the coding, format and clinical context of patient data. In addition, data may be omitted in some cases. CLINICAL DECISIONS SHOULD BE BASED ON THE PRIMARY CLINICAL RECORDS. [facility] [employer] [facility]. provides no warranty or guarantee of the accuracy or completeness of information in this document.
--- OUTSIDE RECORDS SUMMARY | 2025-05-21 20:47 | XMS RPT_ITS | CCD ---
Author Organization [facility] Inform ion Partnership [facility] Care Team Providers Care Manager Environmental Services Name Role Phone MEKHI RODRIGUEZ Primary Care [...] Basophil, Absolute 0.0 10 3/mcL Normal 0.0-0.3 [facility] Comment on above: Performed By: #### M DW, CBC, GFR, MG, LIP, ANEU, ADIFF, CMP #### [address] [place], [place] [address] Basophils/100 WBC (Bld) 0.4 % Normal 0.0-2.5 [facility] Comment on above: Performed By: #### M DW, CBC, GFR, MG, LIP, ANEU, ADIFF, CMP #### [address] [place], [place] [address] Eosinophil, Absolute 0.1 10 3/mcL Normal 0.0-0.7 [facility] Comment on above: Performed By: #### M DW, CBC, GFR, MG, LIP, ANEU, ADIFF, CMP #### [address] [address] Eosinophils/100 WBC (Bld) 1.1 % Normal 0.0-6.0 [facility] Comment on above: Performed By: #### M DW, CBC, GFR, MG, LIP, ANEU, ADIFF, CMP #### [address] [address] Lymphocyte, Absolute 2.6 10 3/mcL Normal 0.9-4.3 [facility] Comment on above: Performed By: #### M DW, CBC, GFR, MG, LIP, ANEU, ADIFF, CMP #### [address] [address] Lymphocytes/100 WBC (Bld) 21.7 % Normal 20.0-40.0 [facility] Comment on above: Performed By: #### M DW, CBC, GFR, MG, LIP, ANEU, ADIFF, CMP #### [address] [address] Monocyte, Absolute 0.9 10 3/mcL Normal 0.1-1.4 [facility] Comment on above: Performed By: #### M DW, CBC, GFR, MG, LIP, ANEU, ADIFF, CMP #### [address] [address] Monocytes/100 WBC (Bld) 7.7 % Normal 2.0-13.0 [facility] Comment on above: Performed By: #### M DW, CBC, GFR, MG, LIP, ANEU, ADIFF, CMP #### [address] [address] Neutrophils/100 WBC (Bld) 69.1 % Normal 50.0-75.0 [facility] Comment on above: Performed By: #### M DW, CBC, GFR, MG, LIP, ANEU, ADIFF, CMP #### [address] [address] .GFRon 2025 Estimated Glomerular Filtration Rate 95 ml/min/1.73sqm Normal [facility] Comment on above: Result Comment: [...] GFR, MG, LIP, ANEU, ADIFF, CMP #### [address] [address] .MDWon 05-12-2025 Monocyte Distribution Width 18.10 Normal 0.00-20.00 [facility] Comment on above: Result Comment: For ED adult patients suspected of sepsis, MDW<=20.0 does not rule out sepsis or risk of sepsis Performed By: #### M DW, CBC, GFR, MG, LIP, ANEU, ADIFF, CMP #### [address] [address] .NEUABSon 05-12-2025 Neutrophil, Absolute 8.4 10 3/mcL High 2.3-8.1 [facility] Comment on above: Performed By: #### M DW, CBC, GFR, MG, LIP, ANEU, ADIFF, CMP #### [address] [address] CBCon 05-12-2025 Erythrocyte distribution width (RBC) [Ratio] 13.1 % Normal 11.5-15.5 [facility] Comment on above: Performed By: #### M DW, CBC, GFR, MG, LIP, ANEU, ADIFF, CMP #### [address] [address] Hematocrit (Bld) [Volume fraction] 46.3 % Normal 40.0-52.0 [facility] Comment on above: Performed By: #### M DW, CBC, GFR, MG, LIP, ANEU, ADIFF, CMP #### [place] [address] Hgb 16.1 G/dL Normal 13.0-17.5 [facility] Comment on above: Performed By: #### M DW, CBC, GFR, MG, LIP, ANEU, ADIFF, CMP #### [place] [address] MCH (RBC) [Entitic mass] 30.1 pg Normal 27.0-33.0 [facility] Comment on above: Performed By: #### M DW, CBC, GFR, MG, LIP, ANEU, ADIFF, CMP #### [place] [address] MCHC 34.7 G/dL Normal 32.0-36.0 [facility] Comment on above: Performed By: #### M DW, CBC, GFR, MG, LIP, ANEU, ADIFF, CMP #### [place] [address] MCV (RBC) [Entitic vol] 86.9 fL Normal 81.0-100.0 [facility] Comment on above: Performed By: #### M DW, CBC, GFR, MG, LIP, ANEU, ADIFF, CMP #### [place] [address] Platelet 295 10 3/mcL Normal 150-450 [facility] Comment on above: Performed By: #### M DW, CBC, GFR, MG, LIP, ANEU, ADIFF, CMP #### [place] [address] Platelet mean volume (Bld) [Entitic vol] 8.8 fL Normal 6.4-10.5 [facility] Comment on above: Performed By: #### M DW, CBC, GFR, MG, LIP, ANEU, ADIFF, CMP #### [place] [address] RBC 5.33 10 6/mcL Normal 4.50-6.00 [facility] Comment on above: Performed By: #### M DW, CBC, GFR, MG, LIP, ANEU, ADIFF, CMP #### [address] [address] WBC 12.1 10 3/mcL High 4.5-10.8 [facility] Comment on above: Performed By: #### M DW, CBC, GFR, MG, LIP, ANEU, ADIFF, CMP #### [address] [address] CMPon 05-12-2025 ALT [Catalytic activity/Vol] 30 U/L Normal 16-63 [facility] Comment on above: Performed By: #### M DW, CBC, GFR, MG, LIP, ANEU, ADIFF, CMP #### [address] [address] Albumin Level 4.5 G/dL Normal 3.5-5.0 [facility] Comment on above: Performed By: #### M DW, CBC, GFR, MG, LIP, ANEU, ADIFF, CMP #### [address] [address] Albumin/Globulin [Mass ratio] 1.2 {ratio} Normal 1.1-2.5 [facility] Comment on above: Performed By: #### M DW, CBC, GFR, MG, LIP, ANEU, ADIFF, CMP #### [address] [address] ALP [Catalytic activity/Vol] 85 U/L Normal 40-135 [facility] Comment on above: Performed By: #### M DW, CBC, GFR, MG, LIP, ANEU, ADIFF, CMP #### [address] [address] AST [Catalytic activity/Vol] 41 U/L High 10-40 [facility] Comment on above: Performed By: #### M DW, CBC, GFR, MG, LIP, ANEU, ADIFF, CMP #### [address] [address] Bili Total 0.4 mg/dL Normal 0.2-1.0 [facility] Comment on above: Result Comment: Use of this assay is not recommended for patients undergoing treatment with eltrombopag due to the potential for falsely elevated results. Performed By: #### M DW, CBC, GFR, MG, LIP, ANEU, ADIFF, CMP #### [place] [address] BUN/Creatinine Ratio 12 ratio Normal 7-27 [facility] Comment on above: Performed By: #### M DW, CBC, GFR, MG, LIP, ANEU, ADIFF, CMP #### [place] [address] Calcium [Mass/Vol] 9.5 mg/dL Normal 8.4-10.2 [facility] Comment on above: Performed By: #### M DW, CBC, GFR, MG, LIP, ANEU, ADIFF, CMP #### [place] [address] Chloride [Moles/Vol] 102 mmol/L Normal 98-107 [facility] Comment on above: Performed By: #### M DW, CBC, GFR, MG, LIP, ANEU, ADIFF, CMP #### [place] [address] CO2 [Moles/Vol] 27 mmol/L Normal 22-29 [facility] Comment on above: Performed By: #### M DW, CBC, GFR, MG, LIP, ANEU, ADIFF, CMP #### [place] [address] Creatinine [Mass/Vol] 1.14 mg/dL Normal 0.67-1.17 [facility] Comment on above: Performed By: #### M DW, CBC, GFR, MG, LIP, ANEU, ADIFF, CMP #### [place] [address] Electrolyte Balance 8.0 mEq/L Normal 4.0-15.0 [facility] Comment on above: Performed By: #### M DW, CBC, GFR, MG, LIP, ANEU, ADIFF, CMP #### [address] [address] Globulin 3.7 G/dL Normal 2.7-4.4 [facility] Comment on above: Performed By: #### M DW, CBC, GFR, MG, LIP, ANEU, ADIFF, CMP #### [address] [address] Glucose [Mass/Vol] 96 mg/dL Normal 70-105 [facility] Comment on above: Performed By: #### M DW, CBC, GFR, MG, LIP, ANEU, ADIFF, CMP #### [address] [address] Potassium [Moles/Vol] 4.4 mmol/L Normal 3.5-5.1 [facility] Comment on above: Performed By: #### M DW, CBC, GFR, MG, LIP, ANEU, ADIFF, CMP #### [address] [address] Sodium [Moles/Vol] 137 mmol/L Normal 136-145 [facility] Comment on above: Performed By: #### M DW, CBC, GFR, MG, LIP, ANEU, ADIFF, CMP #### [address] [address] Total Protein 8.2 G/dL Normal 6.4-8.2 [facility] Comment on above: Performed By: #### M DW, CBC, GFR, MG, LIP, ANEU, ADIFF, CMP #### [address] [address] Urea nitrogen [Mass/Vol] 14 mg/dL Normal 7-18 [facility] Comment on above: Performed By: #### M DW, CBC, GFR, MG, LIP, ANEU, ADIFF, CMP #### [address] [address] [address] ABD/PELVIS W/ IV CONTRAST ONLYon 05-12-2025 [...] PM Ordering Provider: MEGHNA SANCHEZ RP Normal [facility] LABORATORYOrdered By: SYSTEM SYSTEM on [...] 05-12-2025 Lipase Level 35 U/L Normal 16-77 [facility] Comment on above: Performed By: #### M DW, CBC, GFR, MG, LIP, ANEU, ADIFF, CMP #### [address] [address] MGon 05-12-2025 Magnesium [Mass/Vol] 2.0 mg/dL Normal 1.8-2.4 [facility] Comment on above: Performed By: #### M DW, CBC, GFR, MG, LIP, ANEU, ADIFF, CMP #### [address] [address] UAon 05-12-2025 Color (U) Yellow Normal Yellow [facility] Comment on above: Performed By: #### U A #### [place] [address] Glucose (U) [Mass/Vol] Negative Normal Negative [facility] Comment on above: Performed By: #### U A #### [place] [address] Ketones Ql (U) Negative Normal Negative [facility] Comment on above: Performed By: #### U A #### [place] [address] UA Appear Clear Normal Clear [facility] Comment on above: Performed By: #### U A #### [address] [address] UA Blood Negative Normal Negative [facility] Comment on above: Performed By: #### U A #### [address] [address] UA Leuk Est Negative Normal Negative [facility] Comment on above: Performed By: #### U A #### [place] [address] UA Nitrite Negative Normal Negative [facility] Comment on above: Performed By: #### U A #### [place] [address] UA pH 8.5 Normal 5.0 - 8.0 [facility] Comment on above: Performed By: #### U A #### [place] [address] UA Protein Negative Normal Negative [facility] Comment on above: Performed By: #### U A #### [address] [place], [place] [address] UA Spec Grav 1.015 Normal 1.015-1.025 [facility] Comment on above: Performed By: #### U A #### [address] [place], [place] [address] UA Specimen Type Clean Catch Normal [facility] Comment on above: Performed By: #### U A #### [address] [place], [place] [address] UA Urobilinogen 0.2 E.U./dL Normal 0.2-1.0 [facility] Comment on above: Performed By: #### U A #### [address] [address] Urobilinogen (U) [Mass/Vol] Negative Normal Negative [facility] Comment on above: Performed By: #### U A #### [address] [address] Surgery Specimen Level IIIon 06-21-2023 Surgery Specimen Level III Patient Age/Sex Location Account Attending Physician PAUL BANGURA 17/M LABSPEC [id number] Becky Lewis Specimen: [id number] Received: 06/24/23 Status: LUIS Lee Num: [id number] Spec Type: TONSILS Subm Dr: Dr. Mekhi [...] - left tonsil. / AM:momo 06/24/2023 TC:5 [facility]: [address] x2 Patient Age/Sex Location Account Attending Physician [facility] 17[facility] [id number] Becky Lewis Signed (signatur e on file) Dr. Austyn Verma DO 06/27/23 1302 Normal [facility] Comment on above: Performed By: #### P SUIII #### [facility] [address] [place], [address] Vivian 09-24-2022 CNOV Office Visit (UCWSTR) ---- PAUL BANGURA ([id number]) 5 M Date Time Provider Department 09/24/22 7:45 PM [facility] [[email or web address]] During your visit today, we recorded the [...] Dark urine (more content not included)... Normal [facility] Vital Signs Date Time Vital Sign Value Performing Clinician Gregorio mueller 05-13-2025 00:12-0400 Diastolic Blood Pressure Non-Invasive 54 mm[Hg] MEGHNA SANCHEZ [employer] [facility] 05-13-2025 00:12-0400 Heart rate 78 /min [facility] INSAN[facility]my [employer] [facility] 05-13-2025 00:12-0400 Reason For Taking VItal Signs [facility] [employer] [facility] 05-13-2025 00:12-0400 Respiratory rate 16 /min MEGHNA FROMMELT DO [facility] 05-13-2025 00:12-0400 Systolic Blood Pressure Non-Invasive 129 mm[Hg] MEGHNA FROMMELT DO [facility] 05-12-2025 23:02-0400 Diastolic Blood Pressure Non-Invasive 61 mm[Hg] MEGHNA FROMMELT DO [facility] 05-12-2025 23:02-0400 Heart rate 77 /min MEGHNA MIRANDAMELT DO [facility] 05-12-2025 23:02-0400 Reason For Taking VItal Signs MEGHNA FROMMELT DO [facility] 05-12-2025 23:02-0400 Respiratory rate 16 /min MEGHNA FROMMELT DO [facility] 05-12-2025 23:02-0400 Systolic Blood Pressure Non-Invasive 131 mm[Hg] MEGHNA MIRANDAMELT DO [facility] 05-12-2025 21:41-0400 Body temperature 97.52 [degF] MEGHNA MIRANDAMELT DO [facility] 05-12-2025 21:41-0400 Body weight 108.3 kg MEGHNA FROMMELT DO [facility] 05-12-2025 21:41-0400 Diastolic Blood Pressure Non-Invasive 81 mm[Hg] MGEHNA MIRANDAMELT DO [facility] 05-12-2025 21:41-0400 Heart rate 83 /min MEGHNA FROMMELT DO [facility] 05-12-2025 21:41-0400 Respiratory rate 16 /min MEGHNA MIRANDAMELT DO [facility] 05-12-2025 21:41-0400 Systolic Blood Pressure Non-Invasive 151 mm[Hg] MEGHNA SANCHEZ DO [facility] Encounters Encounter Date Encounter Type Care Provider Facility Start: 05-12-2025 End: 05-13-2025 Emergency department patient visit MEGHNA SANCHEZ DO [facility] Start: 06-22-2023 End: 06-22-2023 [facility] Start: 09-24-2022 End: 09-24-2022 ambulatory [facility] Facility:[facility] Procedures Date Procedure Procedure Detail Performing Clinician Tonsillar structure (palatine) (body structure) MEGHNA SANCHEZ DO Payers Date Payer Category Payer Private Health Insurance [id number] 2023 Self-pay 2023 Unknown [id number] 2009 Unknown [id number] 2005 Unknown [id number] Unknown [id number] Social History Date Type Detail Facility Tobacco Nicotine Use: Va ping Product in Last 90 Days. Type: Electronic Cigarettes (Vaping). [facility] Tobacco smoking status [facility] Sex Assigned At Male [facility] Start: 05-12-2025 Sex Male (finding) [facility] Start: 05-12-2025 Not applicable (qualifier value) [facility] Functional Status Date Assessment Result Facility 05-13-2025 Functional Status Standard Safet y ID band on, Call device within reach, Bed in low position, Wheels locked, Bedside Cart Locked, Safety level maintained [facility] 05-12-2025 Functional Status [facility] 05-12-2025 Functional Status [facility] 05-12-2025 [facility] Mental Status Date Assessment Result Facility 05-13-2025 Mental Status Oriented x 4 [facility] 05-12-2025 Mental Status [facility] Discharge instructions 05-13-2025 Note Date & [...] of blood present in vomit or stool [phone] [employer]. [address] [place] [address]. All rights reserved. This information is not [...] chest, arm, back, neck or jaw pain 6452-9968 [employer]. [address] [place] [address], [place] [address]. All rights reserved. This information is not intended as a substitute for professional medical care. Always follow your healthcare professional's instructions. Follow Up Care 05/12/2025 21:40:12 With:SAL HERNANDEZ MD Address: [address] [address] [phone] When:2-4 days [facility] Discharge summary 05-13-2025 Note Date & Type Note Facility 05-13-2025 Emergency department Discharge summary Discharge Instructions Thank you for allowing [place] to assist you with your healthcare needs. [...] When:Within 2-4 days Where:[address] [place] [phone] Allergies NKA Medications Please ask your primary [...] of blood present in vomit or stool [phone] [employer]. [address] [place] [address], [place] [address]. All rights reserved. This information is not [...] chest, arm, back, neck or jaw pain 7821-6250 [employer]. [address] [place] [address]. All rights reserved. This information is not intended as a substitute for professional medical care. Always follow your healthcare professional's instructions. Additional Information VACCINATE! IT SAVES LIVES! Members of the community who have not yet received the COVID-19 vaccine and would like to receive it can visit one of [facility] vaccine clinics. There are many vaccine clinic locations within the [facility]. For locations and available times, please visit [email or web address] It is important to note that some COVID mobile vaccine clinics are held outdoors and may be canceled in rainy or stormy conditions. To learn more about pediatric vaccinations (ages 5-11), we invite you to visit the [facility] webpage. [email or web address] To learn more about the COVID-19 vaccine, we invite you to visit the CDC website for a list of frequently asked questions. https://www.cdc.gov/coronavirus/2 019-ncov/vaccines/faq.html [facility] [employer] Patient Portal Access Instructions: Stay connected with your healthcare team and access your personal medical information anytime with the [facility] [employer] Patient Portal. If you would like a full copy of your medical records please contact the [facility] Medical Records Department Tuesday through Tuesday between 8a.m. and 4:30p.m. Please follow the directions below to access the portal: 1.Access the email account you provided upon registration to the [facility].2.Look for an invitation email from [facility].3.Open the email and access the invitation link: Accept Invitation to [employer]Jax4.Fill in the required vicente to create your account. To access your account, visit [employer] or scan the FastCall code above. Click the blue button labeled [...] you will allow to register on the [email or web address] Patient Portal for access to your information. You can also access the [email or web address] Patient Portal on the [employer]. Simply click on Health Records under Health Data and then click on the [facility] logo. HOW TO SAFELY DISPOSE OF PRESCRIPTION [...] Call your local pharmacy or go to http://[email or web address].[email or web address]/[email or web address] to find one close to you.3.Make use of household items: Use cat litter or old coffee grounds to dispose medications if other options are not available. Mix your drugs with these household products, seal them in an airtight container and throw it into the garbage. Call [facility]: [phone] to be sure your drugs can be [...] aware that I should contact my doctor. Patient/Associate Sales Manager Signature: Date/Time: Relationship to Patient: ____ Witness Name/Signature: Date/Time: [facility] Clinical Note 05-12-2025 Note Date & Type Note Facility 05-12-2025 Note Exam Date Time Procedure Performing Provider Status 05/12/25 11:[address] Abd/Pelvis w/ IV Contrast Only KAROL CHAKRABORTY DO; Auth (Verified) [id number] ORIGINAL EXAMINATION: CT OF THE ABDOMEN AND [...] 11:48:42 PM Ordering Provider: MEGHNA SANCHEZ RP [facility] Progress note 09-24-2022 Note Date & Type Note Facility 09-24-2022 Note HNO ID: [id number] Author: LEONEL Rhodes Service: ? Author Type: Physician Science Teacher Type: Progress Notes Filed: 09/24/2022 8:05 PM [...] detail warranting prompt ER evaluation. LEONEL Rhodes [facility] Evaluation + Plan note Note Date & Type Note Facility Evaluation + Plan note No data available for this section [facility] Summary note Note Date & Type Note Facility Summary note SHAD Boyle: PERFORM Event Display: Patient Summary Documents Authored Date: [id number] [facility] Summary Purpose Family History No Family History [...] section and content) DATE CREATED AUTHOR 09/25/2022 [facility] DATE CREATED AUTHOR AUTHOR'S ORGANIZ ATION 06/29/2023 [facility] DATE CREATED AUTHOR AUTHOR'S ORGANIZ ATION 05/18/2025 [facility] Patient Care team informatio n [...] BE BASED ON THE PRIMARY CLINICAL RECORDS. [facility] [employer] [facility]. provides no warranty or guarantee of the accuracy or completeness of information in this document.
[2025-05-21 21:48] LABS: AST(SGOT) 18 U/L (<=37); Alanine Aminotransfer ALT/SGPT 12 U/L (<=46); Albumin, Serum 4.9 g/dL (3.5-5.0); Alkaline Phosphatase 74 U/L (40-129); Anion Gap 13 (5-15); BUN 18 mg/dL (4-19); BUN/Creat Ratio 12.2 RATIO (10-20); Calcium,Total 10.6 mg/dL (7.6-11.0); Carbon Dioxide 25.0 mmol/L (21.0-32.0); Chloride 100 mmol/L (98-108); Globulin 3.5 g/dL (2.2-4.2); Glucose 70 mg/dL (70-99); Potassium 4.2 mmol/L (3.3-5.1)
[2025-05-21 21:59] LABS: Hematocrit 49.6 % (40-54); Hemoglobin 16.6 g/dL (13.0-16.5); Immature Granulocytes Count 0.020 X10^3/uL (0.0-0.0); Mean Corp Hgb Conc 33.5 g/dL (32-36); Mean Corpuscular Volume 87.8 fL (80-94); Mean Platelet Vol. 10.2 fl (6.2-12.0); NRBC Flagged by Analyzer 0 % (0-5); Platelet Count 294 K/mm3 (150-450); RBC Distribution Width CV 12.3 % (11.6-14.6); RBC Distribution Width SD 39.7 fl (35.1-43.9); Red Blood Count 5.65 M/mm3 (4.6-6.2); White Blood Count 7.2 K/mm3 (4.4-11.0)
[2025-05-21 23:00] LABS: Amylase 86 U/L (28-100); CRP < 3.00 mg/L (0.0-3.0); Lipase 61 U/L (13-75)
== END | disposition home or self-care (01) ==
PROVIDERS: PCP Family Medicine; Visit Provider Family Medicine
DX: R10.9 Unspecified abdominal pain (principal)
CPT/HCPCS: 36415; 80053; 82150; 83690; 85025; 85652; 86140